=== PATIENT | male | born 1970 | race Caucasian/White ===

== ENCOUNTER 2017-09-04 10:37 | Emergency (ER) | payer SELFPAY ==
[2017-09-04 10:47] VITALS: BP 154/96
--- NOTE | 2017-09-04 11:02 | UC ---
Hand/Wrist HPI - HPI Summary HPI Summary: 47 Y/O male being seen for R hand injury, swelling and pain. States that he was carrying a piece of staging on 09/03/17 and his hand was smashed between the pieces of staging. States staging weighed approximately 150lbs. Blood pressure is elevated today without a history of hypertension, likely due to pain and injury. Discussed need for follow up BP check with primary medical provider. Medical history and medications reviewed at this visit. - History Of Current Complaint Chief Complaint: UCLowerExtremity Stated Complaint: HAND INJURY Time Seen by Provider: 09/04/17 10:55 Hx Obtained From: Patient Onset/Duration: Sudden Onset Severity Initially: Severe Severity Currently: Severe Pain Intensity: 8 Pain Scale Used: 0-10 Numeric Character Of Pain: Sharp, Aching, Throbbing Aggravating Factor(s): Movement Alleviating Factor(s): Rest, Ice Associated Signs And Symptoms: Positive: Swelling - Risk Factors Compartment Syndrome Risk Factors: Pain - Allergies/Home Medications Allergies/Adverse Reactions: Allergies Allergy/AdvReac Type Severity Reaction Status Date / Time No Known Allergies Allergy Verified 10/16/15 18:20 Home Medications: Home Medications NK [No Home Medications Reported] 09/04/17 [History Confirmed 09/04/17] PMH/Surg Hx/FS Hx/Imm Hx Previously Healthy: Yes - Surgical History Surgical History: Yes Surgery Procedure, Year, and Place: RIGHT WRIST SURGERY - Family History Family History: NON CONTRIBUTORY - Social History Alcohol Use: Occasionally Substance Use Type: None Smoking Status (MU): Never Smoked Tobacco Review of Systems Constitutional: Negative Skin: Bruising Eyes: Negative ENT: Negative Respiratory: Negative Cardiovascular: Negative Gastrointestinal: Negative Genitourinary: Negative Motor: Negative Neurovascular: Negative Musculoskeletal: Edema - Right hand Neurological: Negative Psychological: Negative Is Patient Immunocompromised?: No All Other Systems Reviewed And Are Negative: Yes Physical Exam Triage Information Reviewed: Yes Appearance: Well-Appearing Vital Signs: Initial Vital Signs Temp 98.1 F 09/04/17 10:43 Pulse 78 09/04/17 10:43 Resp 16 09/04/17 10:43 BP 154/96 09/04/17 10:43 Pulse Ox 97 09/04/17 10:43 Musculoskeletal: Positive: Other: - Limited range of motion R wrist and fingers Neurological Exam: Normal Skin Exam: Normal Hand/Wrist Course/Dx - Differential Dx/Diagnosis Differential Diagnosis/HQI/PQRI: Contusion, Fracture, Sprain, Strain Provider Diagnoses: Soft tissue swelling Discharge - Sign-Out/Discharge Documenting (check all that apply): Discharge/Admit/Transfer - Discharge Plan Condition: Stable Disposition: HOME Patient Education Materials: Hematoma (ED), Crush Injury (ED) Referrals: Fercho Maher MD [Primary Care Provider] - Fatemeh Hand MD [Medical Doctor] - Additional Instructions: Your xray did not show any fractures. You have soft tissue swelling. Continue to apply ice, take ibuprofen as needed. If swelling does not improve or worsens over the next 3 to 4 days, please follow up with orthopedics or your primary medical provider. you may return to Urgent Care as needed. - Billing Disposition and Condition Condition: STABLE Disposition: HOME
--- NOTE | 2017-09-04 11:37 | RAD ---
INDICATION: Right wrist injury. TECHNIQUE: 3 views of the right wrist were obtained. FINDINGS: There is mild soft tissue swelling. The bones are in normal alignment. No acute fracture is seen. Joint spaces appear maintained. There are couple calcific densities which project in the soft tissues anterior to the carpal bones. IMPRESSION: NO EVIDENCE FOR ACUTE FRACTURE, IF THE PATIENT'S SYMPTOMS PERSIST RECOMMEND FOLLOW-UP IMAGING.
--- NOTE | 2017-09-04 11:40 | RAD ---
INDICATION: Right hand injury. TECHNIQUE: 4 views of the right hand were obtained. FINDINGS: There is soft tissue swelling noted dorsal to the metacarpal bones. The bones are in normal alignment. No fracture is seen. Joint spaces appear maintained. IMPRESSION: SOFT TISSUE INJURY, NO FRACTURE IS SEEN.
== END 2017-09-04 11:54 | disposition home or self-care (01) ==
LOC: UCEAST 10:37
DX: M79.89 Other specified soft tissue disorders (principal); S60.221A Contusion of right hand, initial encounter; W23.0XXA Caught, crushed, jammed, or pinched between moving objects, initial encounter; Y93.89 Activity, other specified; Y92.9 Unspecified place or not applicable; R03.0 Elevated blood-pressure reading, without diagnosis of hypertension
CPT/HCPCS: 99211; G0463